=== PATIENT | female | born 1990 ===

== ENCOUNTER 2018-03-23 10:03 | Emergency (ER) | payer MEDICAID ==
[2018-03-23 10:04] VITALS: BMI 35.3
[2018-03-23] MEDS ORDERED: Sodium Chloride 0.9% 1,000 ML IV SCH (10:45)
--- NOTE | 2018-03-23 10:48 | C.PDOC ---
History Of Present Illness Patient is a 27 year old female, currently 11 weeks , who presents to the ED with complaint of nausea, vomiting, and diarrhea. Patient states she and coworkers ordered [place] food for dinner last night around 7PM. Patient states that around 11PM she began vomiting, at first food contents, and then progressed to just clear fluid. Patient states diarrhea has been watery and non -bloody. Patient states she has not spoken to coworkers and is not sure if they are also ill. She reports subjective fever and chills. Patient states she tried to have Gatorade and water this morning but was not able to keep liquids down. Patient states she has not taken any medication aside from her vitamin. Patient currently reports nausea and crampy abdominal pain. She states last episode of vomiting and diarrhea was approximately 8:30 this morning. Patient estimates LMP in November, and follows with Dr. Petty, but has not yet had ultrasound to confirm dates. She denies vaginal bleeding or discharge. Chief Complaint (Nursing): GI Problem History Per: Patient History/Exam Limitations: no limitations Onset/Duration Of Symptoms: Hrs Current Symptoms Are (Timing): Still Present Context: Food Quality Of Discomfort: Cramping Associated Symptoms: Fever (subjective), Chills, Nausea, Vomiting, Diarrhea, Loss Of Appetite Exacerbating Factors: Food Alleviating Factors: None Last Bowel Movement: Today Additional History Per: Patient Abnormal Vaginal Bleeding: No Last Menstral Period: November 2017 : 1 Para: 0 Past Medical History Vital Signs: Last Vital Signs Temp 98.3 F 03/23/18 10:06 Pulse 93 H 03/23/18 12:14 Resp 16 03/23/18 12:14 BP 112/67 03/23/18 12:14 Pulse Ox 99 03/23/18 13:44 - Medical History PMH: No Chronic Diseases Surgical History: Appendectomy (age 9 y.o.) Family History: States: Unknown Family Hx - Social History Hx Tobacco Use: Yes Hx Alcohol Use: No Hx Substance Use: No - Immunization History Hx Tetanus Toxoid Vaccination: No Hx Influenza Vaccination: No Hx Pneumococcal Vaccination: No Review Of Systems Constitutional: Positive for: Fever (subjective), Chills Eyes: Negative for: Pain, Vision Change ENT: Negative for: Ear Pain, Ear Discharge, Nose Discharge, Mouth Pain, Throat Swelling Cardiovascular: Negative for: Chest Pain, Palpitations Respiratory: Negative for: Cough, Shortness of Breath Gastrointestinal: Positive for: Nausea, Vomiting, Abdominal Pain, Diarrhea. Negative for: Melena, Hematochezia Genitourinary: Negative for: Dysuria, Frequency Musculoskeletal: Negative for: Neck Pain, Back Pain Skin: Negative for: Rash Neurological: Negative for: Weakness, Numbness Physical Exam - Physical Exam Appears: Non-toxic, No Acute Distress Skin: Warm, Dry, Other (blotchy erythematous skin to face and upper chest) Head: Atraumatic, Normacephalic, No Swelling Eye(s): bilateral: PERRL, EOMI Nose: Normal, No Discharge Oral Mucosa: Dry Tongue: No Laceration Lips: Normal Appearing, No Lesions Teeth: Normal Dentition Throat: Normal, No Erythema, No Exudate Neck: Normal ROM Lymphatic: No Adenopathy Chest: Symmetrical Respiratory: Normal Breath Sounds, No Rales, No Rhonchi, No Wheezing Gastrointestinal/Abdominal: Bowel Sounds, Soft, Tenderness (epigastric), No Guarding, No Rebound Back: No CVA Tenderness Extremity: Normal ROM, No Tenderness, No Pedal Edema Pulses: Left Radial: Normal, Right Radial: Normal Neurological/Psych: Oriented x3, Normal Speech, Normal Cognition ED Course And Treatment - Laboratory Results Result Diagrams: 03/23/18 10:45 03/23/18 10:45 O2 Sat by Pulse Oximetry: 99 - CT Scan/US Ultrasound Other Rad Studies (CT/US): Read By Radiologist, Radiology Report Reviewed CT/US Interpretation: Technique: Real-time sonography was performed through the pelvis utilizing transabdominal technique. Findings: Uterus: 12.4 x 6.8 x 7.4 centimeters. Anteverted. Cervix measures 3.1 centimeters. Intrauterine gestational sac measuring 5.1 centimeters corresponding to a gestational age of 10 [address] [place]-rump length measures 4.1 centimeters corresponding to a gestational age of 11 weeks and 0 days. heart rate of 146 beats per minute. No free fluid in the pelvic cul-de-sac. Right ovary: 3.5 x 2.1 x 2.7 centimeters. Normal flow. Left ovary: 2.9 x 1.7 x 3.0 centimeters. Normal flow. Impression: Intrauterine corresponding to a gestational age of approximately 11 weeks 0 days with crown-rump length of 4.1 centimeters. heart rate of 146 beats per minute. Limited 1st trimester ultrasound for viability purposes only. Continued interval followup with serial ultrasound, serial HCG levels, and gynecological consultation would be helpful if clinically indicated. Progress Note: 11:11 patient re-evaluated, feeling better with IVF running. Patient tolerating small sips of water. 13:42, patient improved after IVF. Patient requesting discharge home. Ultrasound results discussed with patient. Patient instructed to follow up with OBGYN Dr. Petty after discharge. Disposition Counseled Patient/Family Regarding: Studies Performed, Diagnosis, Need For Followup, Rx Given - Disposition Referrals: Reji Petty MD [Staff Provider] - Disposition: HOME/ ROUTINE Disposition Time: 13:33 Condition: GOOD Additional Instructions: Please follow up with your doctor, Dr. Petty, within the next 1-2 days. Continue to drink plenty of fluids and maintain bland diet. Please return to the ED if your symptoms worsen or reoccur. Prescriptions: Ondansetron ODT [Zofran ODT] 4 mg PO Q8H PRN #6 odt PRN Reason: Nausea/Vomiting Instructions: Diarrhea in Adolescents and Adults, Medications and , [place] Diet, - The Third Month, Gastroenteritis (DC) Forms: [facility] ([place]), Work Excuse - Clinical Impression Clinical Impression: First trimester , Gastroenteritis - PA / BLANKET FOLDER / Resident Statement / has reviewed & agrees with the documentation as recorded. / has examined the patient and agrees with the treatment plan.
[2018-03-23 10:56] LABS: BASO % 0.1 % (0.0-2.0); EOS # 0.1 K/uL (0.0-0.7); EOS % 0.6 % (0.0-4.0); HEMOGLOBIN 12.8 g/dL (11.0-16.0); LYMPH # 1.2 K/uL (1.0-4.3); LYMPH % 8.3 % (20.0-40.0); MEAN CELL VOLUME 90.3 fL (81.0-99.0); MEAN CORPUSCULAR HEMOGLOBIN 30.6 pg (27.0-31.0); MEAN CORPUSCULAR HGB CONC 33.9 g/dL (33.0-37.0); MEAN PLATELET VOLUME 9.3 fL (7.2-11.7); MONO # 0.8 K/uL (0.0-0.8); MONO % 5.7 % (0.0-10.0); NEUT # 12.1 K/uL (1.8-7.0); NEUT % 85.3 % (50.0-75.0); PLATELET COUNT 224 K/uL (130-400); RBC 4.19 Mil/uL (3.80-5.20); RED CELL DISTRIBUTION WIDTH 13.3 % (11.5-14.5); WHITE BLOOD COUNT 14.2 K/uL (4.8-10.8)
[2018-03-23 11:18] LABS: ALB/GLOB RATIO 1.1 (1.0-2.1); ALBUMIN 4.1 g/dL (3.5-5.0); ALT/SGPT 31 U/L (9-52); AST/SGOT 29 U/L (14-36); BLOOD UREA NITROGEN 8 mg/dL (7-17); GFR AFRICAN-AMERICAN > 60; GFR NON-AFRICAN AMERICAN > 60
[2018-03-23 11:49] LABS: BASOPHIL 1 % (0-2); EOSINOPHIL 1 % (0-4); LYMPHOCYTE 9 % (20-40); MONOCYTE 6 % (0-10); NEUTROPHIL 83 % (50-75); PLATELET ESTIMATE NORMAL (NORMAL); TOTAL CELLS COUNTED 100
[2018-03-23 12:42] LABS: SQUAMOUS EPITHIAL 7 /hpf (0-5); URINE BACTERIA OCC (<OCC); URINE BILIRUBIN NEGATIVE (NEGATIVE); URINE BLOOD NEGATIVE (NEGATIVE); URINE CLARITY Hazy (Clear); URINE COLOR Straw (YELLOW); URINE GLUCOSE (UA) NORMAL (Normal); URINE LEUKOCYTE ESTERASE NEG Leu/uL (Negative); URINE PROTEIN NEGATIVE (NEGATIVE); URINE UROBILINOGEN NORMAL mg/dL (0.2-1.0)
--- NOTE | 2018-03-23 12:53 | US ---
Pelvic ultrasound History: . Vomiting and diarrhea. Comparison: None available. Technique: Real-time sonography was performed through the pelvis utilizing transabdominal technique. Findings: Uterus: 12.4 x 6.8 x 7.4 centimeters. Anteverted. Cervix measures 3.1 centimeters. Intrauterine gestational sac measuring 5.1 centimeters corresponding to a gestational age of 10 weeks and 6 days. [place]-rump length measures 4.1 centimeters corresponding to a gestational age of 11 weeks and 0 days. heart rate of 146 beats per minute. No free fluid in the pelvic cul-de-sac. Right ovary: 3.5 x 2.1 x 2.7 centimeters. Normal flow. Left ovary: 2.9 x 1.7 x 3.0 centimeters. Normal flow. Impression: Intrauterine corresponding to a gestational age of approximately 11 weeks 0 days with crown-rump length of 4.1 centimeters. heart rate of 146 beats per minute. Limited 1st trimester ultrasound for viability purposes only. Continued interval followup with serial ultrasound, serial HCG levels, and gynecological consultation would be helpful if clinically indicated.
[2018-03-23 14:34] VITALS: BP 114/72; PULSE 88; RESP 18; TEMP 98.9; O2SAT 97
== END 2018-03-23 14:33 | disposition home or self-care (01) ==
LOC: C.ER 10:03
DX: O26.891 Other specified pregnancy related conditions, first trimester (principal); K52.9 Noninfective gastroenteritis and colitis, unspecified; Z3A.11 11 weeks gestation of pregnancy
CPT/HCPCS: 76801; 80053; 81001; 83735; 84100; 85025; 96360; 99285; J7040

== ENCOUNTER 2018-07-05 14:23 | Emergency (ER) | payer MEDICAID, OTHER ==
[2018-07-05 14:33] VITALS: BMI 37.3
[2018-07-05] MEDS ORDERED: Acyclovir 5% Oint (30 gm) EXT SCH (15:45)
[2018-07-05 16:38] LABS: BASO % 0.3 % (0.0-2.0); EOS # 0.1 K/uL (0.0-0.7); EOS % 0.7 % (0.0-4.0); HEMOGLOBIN 12.2 g/dL (11.0-16.0); LYMPH # 1.9 K/uL (1.0-4.3); LYMPH % 15.4 % (20.0-40.0); MEAN CELL VOLUME 88.4 fL (81.0-99.0); MEAN CORPUSCULAR HEMOGLOBIN 29.7 pg (27.0-31.0); MEAN CORPUSCULAR HGB CONC 33.6 g/dL (33.0-37.0); MEAN PLATELET VOLUME 9.3 fL (7.2-11.7); MONO # 0.7 K/uL (0.0-0.8); MONO % 5.3 % (0.0-10.0); NEUT # 9.9 K/uL (1.8-7.0); NEUT % 78.3 % (50.0-75.0); RBC 4.09 Mil/uL (3.80-5.20); RED CELL DISTRIBUTION WIDTH 13.9 % (11.5-14.5); WHITE BLOOD COUNT 12.6 K/uL (4.8-10.8)
[2018-07-05 16:52] LABS: ALB/GLOB RATIO 1.3 (1.0-2.1); ALT/SGPT 18 U/L (9-52); AST/SGOT 17 U/L (14-36); BLOOD UREA NITROGEN 5 mg/dL (7-17); CALCIUM 9.2 mg/dl (8.6-10.4); GFR AFRICAN-AMERICAN > 60; GFR NON-AFRICAN AMERICAN > 60
[2018-07-05 17:01] LABS: SQUAMOUS EPITHIAL 2 /hpf (0-5); URINE BILIRUBIN NEGATIVE (NEGATIVE); URINE BLOOD NEGATIVE (NEGATIVE); URINE CLARITY Hazy (Clear); URINE COLOR Yellow (YELLOW); URINE GLUCOSE (UA) NORMAL (Normal); URINE LEUKOCYTE ESTERASE NEG Leu/uL (Negative); URINE PROTEIN NEGATIVE (NEGATIVE); URINE UROBILINOGEN NORMAL mg/dL (0.2-1.0)
[2018-07-05 17:23] LABS: HEPATITIS B SURFACE AG Negative (NEGATIVE)
[2018-07-05 17:29] LABS: HEPATITIS A IGM NEGATIVE (NEGATIVE); HEPATITIS B CORE AB NEGATIVE (NEGATIVE)
[2018-07-05 17:40] LABS: HEPATITIS C ANTIBODY NEGATIVE (NEGATIVE)
[2018-07-06] MEDS ORDERED: Prenatal Multivit/Folic Acid/Iron Tab PO SCH (10:00)
--- NOTE | 2018-07-06 11:30 | OBHP ---
Datetime: 07/05/2018 14:45 IP Adm Impression: , intrauterine ; No Active Labor; Intact Membranes IP Admit Plan: Observation/Evaluation Admit Comment, IP Provider: 27 yo female with a IUP at 26 3/7 weeks and presented with bernie re HYMAN, feverish and develped blisters over her inne aspect of right middle finger and pt relates Hx o f Herpes infection in the past with similar lesions and always treated with Zovirax. Pt admits to adequate FM and denies LOF or vaginal bleeding FHT's reassuring for GA. recors requested and reviewed. Labs ordered Zovirax cream ordered adn will apply Pelvic Type - PN: Adequate Extremities - PN: Normal Abdomen - PN: Normal Back - PN: Normal Breast - PN: Not Done Lungs - PN: Normal Heart - PN: Normal Thyroid - PN: Normal Neurologic - PN: Normal HEENT - PN: Normal General - PN: Normal Presentation-Admit: Compound FHR - Baseline A Provider: 130 Membranes, Provider: Intact Contraction Comments Provider: None Gestation - Est Wks by US: 26 3/7 IP Hx Assessment: records requested and reviewed Vital Signs Provider: Reviewed IP Chief Complaint: Illness; Maternal discomfort; evaluation NICHD Variability Prov Fetus A: Moderate 6-25bpm NICHD Accel Fetus A IP Provider: 10X10 FHR Category Provider Fetus A: Category I NICHD Decel Fetus A IP Provider: None Dilatation, Provider: 0 Effacement, Provider: 0 Station, Provider: H Genitourinary Exam: Normal DTRs - PN: Normal
[2018-07-06 15:28] VITALS: BP 117/66; PULSE 80
== END 2018-07-05 17:59 | disposition home or self-care (01) ==
LOC: C.EROB 14:23
DX: O26.892 Other specified pregnancy related conditions, second trimester (principal); Z3A.26 26 weeks gestation of pregnancy